=== PATIENT | female | born 1945 | race Caucasian/White ===

== ENCOUNTER 2016-10-11 08:33 | Outpatient (CLI) ==
--- NOTE | 2016-10-11 10:55 | MRI ---
EXAM: MRI left knee without contrast. HISTORY: Left knee pain. No known injury. Low back pain. No left knee surgery reported.. TECHNIQUE: Using a local extremity coil on a high field strength magnet multiplanar multisequence m agnet resonance imaging performed of the left knee without intravenous or intra-articular gadolinium contrast. FINDINGS: I do not have prior radiographs of the left knee available for comparison at the time of this dictation. Within the medial compartment medial meniscus is intact without discrete surfacing meniscal tear. M edial compartment cartilage congruent without focal underlying subchondral edema. Within the lateral compartment lateral meniscus is intact without discrete surfacing meniscal tear. The lateral compartment cartilage congruent without focal underlying subchondral edema. Within the patellofemoral compartment the patella seated with intact patellar attachment of the medi al and lateral patellar retinaculum. Patellar cartilage congruent without focal underlying subchond ral edema. Focal chondrosis with subchondral remodeling over the inferior medial trochlear groove. Trace left knee effusion. No osteochondral loose bodies. Intact PCL fibers of normal orientation. Expansion of proximal to mid substance anterior cruciate ligament fibers with increased signal inte nsity. Appearance suggests cruciate ligament ganglion with possible mucoid degeneration. Some of t his appearance may be secondary to chronic partial tear/sprain. No anterior translation of the tibi a with respect to the femur. The extensor mechanism is intact. The medial collateral ligament as w ell as lateral collateral ligament complex and posterolateral corner intact. Overall bone marrow si gnal intensity shows no acute fracture, stress fracture or bone erosions. Incidental note of an lupe roximate 5 cm craniocaudad area measuring approximate 27 x 10 mm of serpiginous bright T2 signal int ensity intramuscular along the distal left biceps femoris muscle. This has a feeding/draining vascu larity. IMPRESSION: No discrete surfacing meniscal tear. Mild chondrosis with subchondral remodeling over the inferior medial trochlear groove. Trace left e ffusion. Anterior cruciate ligament ganglion with possible mucoid degeneration. Some of this appearance may b e secondary to chronic partial tear/sprain. Intact PCL and collateral ligaments. 5 cm x 27 x 10 mm serpiginous soft tissue lesion intramuscular along the distal left biceps femoris muscle with feeding/draining vascularity. Question vascular malformation/hemangioma.
--- NOTE | 2016-10-11 13:14 | MRI ---
EXAM: MRI lumbar spine without IV contrast. DATE: 10/11/2016. HISTORY: Low back pain. TECHNIQUE: Sagittal and axial T1W and T2W sequences of the lumbar spine along with sagittal IR and coronal T2W sequences were obtained using 1.5 Lucie magnet. No IV contrast. COMPARISON: CT abdomen/pelvis [address] T-spine August 2014. FINDINGS: There are five [id number] lumbar vertebra. Minimal (3 degrees) rightward curvature lumbar spine is present. No acute lumbar fracture, subluxation, osseous malignancy, or pars interar ticularis defect is identified. A T2W/T1W bright, 9.4 mm focus in the is identified in the L3 body and similar 8.2 mm focus in the eft side of T11. T2W/T1W/IR bright, 7 x 2.5 x 9.5 mm focus in the T 12 spinous process may be an atypical hemangioma. Small anterior osteophytes are noted at several l umbar levels. Tiny, chronic Schmorl's nodes are identified at T10 and L1. There is mild disc space narrowing at L5-S1. Bone marrow signal is overall normal. No sacral fracture or stress reaction is apparent. SI joints are unremarkable. Conus medullaris terminates at T12-L1. No retroperitoneal lymphadenopathy, paraspinal mass, or aortic aneurysm is detected. A sclerotic pl aques are present within the aortic wall. Psoas muscles are normal. There is minor bilateral poste rior paraspinal muscle atrophy. Visible portions of the liver, spleen, adrenal glands, and kidneys reveal no distinct malignancy. A T2W bright, T1W dark, 1.4 mm focus in the anterior cortex midpole right kidney is likely benign cyst. No bowel obstruction or neoplasm is demonstrated. Small number sigmoid colon diverticuli are observed. Segmental analysis: T11-12: Normal. T12-L1: Minimal posterior disc bulge does not cause cord compression, central stenosis or foraminal stenosis. L1-2: Normal. L2-3: Small concentric disc bulge and minor facet disease cause slight bilateral inferior foraminal encroachment. No central canal stenosis. L3-4: Minor posterior disc bulge causes slight narrowing at the opening to the left foramen. No ce ntral canal stenosis. L4-5: Small concentric disc bulge, minimal right facet arthropathy, and mild left facet arthropathy cause mild central canal stenosis and minor bilateral foraminal narrowing. L5-S1: Minimal posterior to right foraminal disc bulge and mild right facet arthropathy cause trian gulation of the canal and minor right foraminal narrowing. IMPRESSIONS: 1. Lumbar spine minimal rightward curvature, minor spondylosis, mild facet arthropathy, and minor D DD. 2. Multilevel foraminal narrowing (minimal/mild). No definitive nerve compression. 3. Triangulation of canal at L5-S1. No other central canal stenosis. 4. Probable benign hemangiomas at T11, T12, and L3. 5. Right kidney tiny (1.5 mm) cortical cyst. 6. Descending colon mild diverticulosis. 7. Abdominal aortic atherosclerosis.
== END 2016-10-11 08:34 | disposition home or self-care (01) ==
LOC: RAD 08:33
PROVIDERS: ATTEND Internal Medicine
DX: M54.5 Low back pain (principal); M25.562 Pain in left knee

== ENCOUNTER 2016-11-24 15:41 | Outpatient (CLI) ==
--- NOTE | 2016-11-24 15:58 | DI ---
EXAM: Four views of the paranasal sinuses. History: Rhinitis. Findings: Evaluation is difficult due to overlapping osseous and soft tissue structures. No fractu res are seen. No distinct air-fluid levels are seen within the sinuses. Impression: No acute findings.
== END 2016-11-24 15:42 | disposition home or self-care (01) ==
LOC: RAD 15:41
PROVIDERS: ATTEND Otolaryngology
DX: J31.0 Chronic rhinitis (principal); J32.9 Chronic sinusitis, unspecified

== ENCOUNTER → 2016-12-01 | Outpatient (POV) | payer OTHER | LOC: OUTPT 00:01 | PROVIDERS: ATTEND Otolaryngology | DX: H90.5 Unspecified sensorineural hearing loss (principal) | CPT/HCPCS: 92557; 92567 ==

== ENCOUNTER 2017-02-21 08:59 | Outpatient (CLI) ==
[2017-02-21] MEDS ORDERED: PROLIA SUBCUT STA (09:13)
[2017-02-21 09:18] VITALS: BP 141/69; TEMP 98.3
== END 2017-02-21 09:00 | disposition home or self-care (01) ==
LOC: OPMED 08:59
PROVIDERS: ATTEND Internal Medicine
DX: M81.0 Age-related osteoporosis without current pathological fracture (principal)
CPT/HCPCS: 96372

== ENCOUNTER 2017-09-19 07:05 | Outpatient (CLI) ==
[2017-09-19 07:22] VITALS: BP 142/73; TEMP 97.8
[2017-09-19] MEDS: PROLIA SUBCUT STA (07:25)
== END 2017-09-19 07:06 | disposition home or self-care (01) ==
LOC: OPMED 07:05
PROVIDERS: ATTEND Internal Medicine
DX: M81.0 Age-related osteoporosis without current pathological fracture (principal)
CPT/HCPCS: 96372

== ENCOUNTER 2017-10-18 09:25 | Outpatient (CLI) | payer OTHER ==
--- NOTE | 2017-10-18 10:20 | US ---
EXAM: Carotid ultrasound HISTORY: Right bruit COMPARISON: None TECHNIQUE: Carotid ultrasound was performed using cali scale, color, and Doppler imaging was perform ed. FINDINGS: Right carotid: There is atherosclerotic plaque in the common carotid and bulb/proximal internal michel tid artery. Peak systolic velocity measurement in the right internal carotid artery is 0.6 meters pe r second. End-diastolic velocity measurement in the right internal carotid artery is 0.2 meters per second. Right internal to common carotid artery peak systolic velocity ratio is 0.7. Flow in the ri ght vertebral artery is antegrade. Left carotid: There is atherosclerotic plaque in the common carotid and bulb/proximal internal carot id artery. Peak systolic velocity measurement in the left internal carotid artery is 0.8 meters per second. End-diastolic velocity measurement in the left internal carotid artery is 0.2 meters per sec ond. Left internal to common carotid artery peak systolic velocity ratio measures 1.0. Flow in the left vertebral artery is antegrade. IMPRESSION: 1. Right internal carotid: Mild (less than 50%) stenosis 2. Left internal carotid: Mild (less than 50%) stenosis
== END 2017-10-18 09:26 | disposition home or self-care (01) ==
LOC: RAD 09:25
PROVIDERS: ATTEND Internal Medicine
DX: R09.89 Other specified symptoms and signs involving the circulatory and respiratory systems (principal)

== ENCOUNTER 2017-12-02 10:12 | Outpatient (CLI) | payer OTHER ==
--- NOTE | 2017-12-02 15:36 | MRI ---
EXAM: Lumbar spine MRI without contrast. HISTORY: Left sciatica. COMPARISON: Lumbar spine MRI 10/11/2016. TECHNIQUE: Multiplanar, multisequence MR images were acquired of the lumbar spine without contrast. FINDINGS: Conus medullaris ends at T12-L1 and has normal signal intensity. Five non-rib bearing lum bar vertebra are present. There is minor thoracolumbar levoscoliosis centered at T12-L1 and minor mi d lumbar levoscoliosis. There is no change in the 2 mm degenerative anterolisthesis of L4 on L5. Th e lumbar vertebra are generally normal in height and intrinsic bone marrow signal. A probable atypic al benign intraosseous hemangioma is present in the T12 posterior spinous process and there are small benign intraosseous hemangiomas at T11 and L3. Minor lumbar ventral spondylosis is present. There is desiccation of the intervertebral discs at L2-3, L4-5 and L5-S1 and there is mild disc space narro wing at L3-4. The partially visualized liver, spleen and kidneys are unremarkable. Several distal descending/sigmo id colonic diverticula are present without diverticulitis. T12-L1: There is a small posterior disc bulge and chronic Schmorl's node along the L1 superior endpl ate. There is no central canal stenosis or foraminal stenosis. L1-2: The intervertebral disc is normal. L2-3: There is a mild disc bulge that narrows the inferior neural foramina bilaterally and there is a small central disc protrusion. There is no central canal stenosis. L3-4: There is a mild disc bulge that minimally narrows the inferior left neural foramen and mild bi lateral facet and ligamentum flavum hypertrophy. There is no central canal stenosis. L4-5: There is anterolisthesis of L4 on L5 and there is a mild disc bulge that is greatest left post eriorly. Moderate left and mild right hypertrophic facet arthropathy is present which causes mild le ft neural foraminal stenosis and minor right foraminal stenosis. There is no central canal stenosis. L5-S1: The intervertebral disc is normal. There is a minor disc bulge that is greatest left posteri natasha and right laterally which narrows the inferior right neural foramen. Small bilateral lateral/fa r lateral endplate osteophytes are present which may encroach on the L5 nerves exiting the neural for judy. There is mild left and minor right facet arthropathy and minor right foraminal stenosis. IMPRESSION: 1. Stable minor lumbar degenerative spondylosis and mild to moderate lumbar facet arthropathy. 2. No change 2 mm degenerative anterolisthesis L4 on L5 due to moderate left and mild right hypertro phic facet arthropathy. 3. Small central disc protrusion L2-3 without central canal stenosis.
== END 2017-12-02 10:13 | disposition home or self-care (01) ==
LOC: RAD 10:12
PROVIDERS: ATTEND Internal Medicine
DX: M54.42 Lumbago with sciatica, left side (principal)

== ENCOUNTER 2018-02-13 11:38 | Outpatient (CLI) | END 2018-02-13 11:39 | disposition home or self-care (01) | LOC: LAB 11:38 | PROVIDERS: ATTEND Physician Assistant Medical | DX: R03.0 Elevated blood-pressure reading, without diagnosis of hypertension (principal); I78.8 Other diseases of capillaries; L72.8 Other follicular cysts of the skin and subcutaneous tissue; M25.50 Pain in unspecified joint; L40.0 Psoriasis vulgaris; L40.59 Other psoriatic arthropathy; Z79.899 Other long term (current) drug therapy | CPT/HCPCS: 36415; 80053; 85025 ==

== ENCOUNTER 2018-03-02 08:29 | Outpatient (CLI) ==
[2018-03-02] MEDS ORDERED: PROLIA SUBCUT STA (08:48)
[2018-03-02 08:51] VITALS: BP 148/56; TEMP 98
== END 2018-03-02 08:30 | disposition home or self-care (01) ==
LOC: OPMED 08:29
PROVIDERS: ATTEND Internal Medicine
DX: M81.0 Age-related osteoporosis without current pathological fracture (principal)
CPT/HCPCS: 96372

== ENCOUNTER 2018-03-21 15:16 | Outpatient (CLI) ==
--- NOTE | 2018-03-21 16:04 | DI ---
EXAM: Three views of the left foot. History: Left foot pain. Comparison: Left foot radiograph 06/19/2014 Findings: No acute fracture or dislocation. Mild calcaneal enthesiopathy. Moderate to severe narro wing of the first MTP joint with marginal sclerosis and osteophyte formation. Diffuse subcutaneous e juan c. Impression: 1. No acute osseous abnormality. 2. 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 3. Diffuse subcutaneous edema. 4. Calcaneal enthesiopathy
--- NOTE | 2018-03-21 16:58 | MRI ---
EXAM: MRI of the right knee without contrast COMPARISON: None available. HISTORY: Posterior knee pain for 2-3 weeks. No known injury. TECHNIQUE: Multiplanar noncontrast MR images of the right knee were acquired using a 1.2 Lucie magne t. FINDINGS: There is intrasubstance degeneration of the medial meniscus without a surfacing tear. The re is intrasubstance degeneration of the lateral meniscus. Striated appearance of the anterior horn/ anterior root attachment of the lateral meniscus favoring anatomic variation or less likely a vertica l tear. Inversion recovery hyperintense signal throughout the adjacent anterior cruciate ligament with thinni ng of the ligament fibers suggesting extensive mucoid degeneration versus sequela of a partial/inters titial tear with residual intact fibers identified. Small hypointense structure along the lateral asp ect of the intercondylar notch as seen on the coronal T2-weighted sequence suggesting some fibers of the anterior cruciate ligament. Bucket-handle fragment arising from the lateral meniscus is consider ed unlikely as the meniscus is otherwise unremarkable in appearance. The posterior cruciate ligament is intact. The medial collateral ligament, lateral collateral ligament complex and posterolateral c orner ligaments are intact. Mild quadriceps and minimal patellar tendinosis without abnormal subluxa tion ofthe patella. Subcutaneous edema anteriorly. Susceptibility artifact within the anteromedial soft tissues which may be related to metallic foreign body at that site. Subcutaneous edema anteriorl y appear Mild to moderate thinning and superficial irregularity of the cartilage of the patella. Moderate thi nning of the cartilage in the medial compartment. No evidence of an acute fracture or osteomyelitis. Moderate joint effusion. Slit-like popliteal cyst. No definite osteochondral body. IMPRESSION: 1. Hyperintense signal and thinning of the anterior cruciate ligament related to extensive mucoid de generation versus sequela of a partial/interstitial tear with intact ligament fibers identified. 2. Hyperintense signal along the anterior root attachment of the lateral meniscus which may represen t extension of signal changes within the anterior cruciate ligament along the shared tibial attachmen t with the anterior cruciate ligament versus anatomic variation with tear at that site considered les s likely. Small hypointense structure along the lateral aspect of the intercondylar notch is favored represent a portion of the anterior cruciate ligament rather than a bucket-handle fragment. 3. Medial and patellofemoral compartment osteoarthrosis. 4. Moderate joint effusion, nonspecific. Slit-like popliteal cyst. 5. Mild patellar/quadriceps tendinosis. 6. Subcutaneous edema anteriorly. Question small metallic foreign body anteromedially.
== END 2018-03-21 15:17 | disposition home or self-care (01) ==
LOC: RAD 15:16
PROVIDERS: ATTEND Internal Medicine
DX: M25.561 Pain in right knee (principal); M79.672 Pain in left foot

== ENCOUNTER 2018-09-04 15:49 | Outpatient (CLI) | payer OTHER ==
[2018-09-04 16:00] VITALS: BP 124/64; TEMP 97.6
[2018-09-04] MEDS: PROLIA SUBCUT STA (16:02)
== END 2018-09-04 15:50 | disposition home or self-care (01) ==
LOC: OPMED 15:49
PROVIDERS: ATTEND Internal Medicine
DX: M81.0 Age-related osteoporosis without current pathological fracture (principal)
CPT/HCPCS: 96372

== ENCOUNTER 2018-11-13 08:45 | Outpatient (CLI) | payer OTHER ==
--- NOTE | 2018-11-13 11:31 | MRI ---
EXAM: MRI of the left knee without contrast COMPARISON: MRI of the left knee 10/11/2016. HISTORY: Left knee pain. No history of left knee surgery specifically provided. TECHNIQUE: Multiplanar noncontrast MR images of the left knee were acquired using a 1.2 Lucie magnet . The submitted images are moderately limited by patient motion artifact and decreased signal to darinel se ratio on several sequences. The sagittal STIR sequence was repeated. FINDINGS: The medial lateral menisci are intact without identification of a surfacing meniscal tear. There is extensive inversion recovery hyperintense signal throughout the substance of the anterior cr uciate ligament with expansion of the ligament proximally favoring extensive mucoid degeneration vers us sequela of a partial/interstitial tear as previously described. There appear to be some thin inta ct residual fibers at that level. This has not significantly changed in appearance as compared to th e previous study. The posterior cruciate ligament, medial collateral ligament and lateral collateral ligament are intact. Mild quadriceps tendinosis and enthesopathy with minimal patellar tendinosis. 0.7 cm lateral subluxation of the patella. Subcutaneous edema anteriorly and medially. There is thinning and irregularity of the cartilage along the junction of the lateral facet and media n ridge which is overall increased in extent as compared to the previous study with thinning and irre gularity of the cartilage along the opposing articular surface of the trochlear groove inferiorly. M ild thinning and irregularity of the cartilage in the medial compartment. No evidence of an acute fr acture or osteomyelitis. There is a small joint effusion with a slit-like popliteal cyst. Soft tissue mass with a tubular/serpentine regions of T2 hyperintense signal and central regions of h ypointense signal extending overlying of 5.6 cm and measuring 2.7 x 1.0 cm in transverse dimension al jamie the course of the distal biceps femoris muscle extending through the level of the joint line with intramuscular component. This was also described on the previous study and may represent a vascular malformations/hemangioma. This is stable to mildly increased in extent as compared to the previous study with increased prominence of adjacent intramuscular and subcutaneous veins which may represent varices/draining veins. IMPRESSION: 1. 5.6 x 2.7 x 1.0 cm serpiginous lesion along the course of the distal biceps femoris muscle with i ntramuscular component which may represent a vascular malformation/hemangioma as noted on the previou s study. This is stable to mildly increased in extent as compared to previous study with increased p rominence of adjacent intramuscular/subcutaneous veins which may represent varices/draining veins. T his could be further assessed with lower extremity Doppler versus CT angiography (with both arterial and venous phase imaging). 2. Intact menisci. 3. Sequela of mucoid degeneration versus previous partial/interstitial tear of the anterior cruciate ligament, unchanged. 4. Mild patellar/quadriceps tendinosis with lateral subluxation of the patella. 5. Medial and patellofemoral compartment osteoarthrosis which has increased in extent. 6. Small joint effusion with a slit-like popliteal cyst.
== END 2018-11-13 08:46 | disposition home or self-care (01) ==
LOC: RAD 08:45
PROVIDERS: ATTEND Internal Medicine
DX: M25.562 Pain in left knee (principal)

== ENCOUNTER 2019-03-29 15:00 | Outpatient (RCR) | payer OTHER ==
--- NOTE | 2019-03-19 09:47 | RS.OPPTEV2 ---
Date of Note: 03/15/19 Visit #: 1 Number of visits approved by Insurance: NA Date of Evaluation: 03/15/19 Payer Source: MEDICARE Surgery Performed?: No Treatment Diagnosis: Low back pain History of Condition/Mechanism of Injury:: Patient reports onset of left low back/sciatic type pain began soon after having left knee surgery the end of November this year. Prior Level of Function.....Patient was independent with: ADL's, Self Care, Work /Vocation (pt works as dietary aide in [employer] Caregiving, Ambulation/ Mobility, Community Integration/Access Functional Limitations: Sleep, ADL's, Sitting, Standing, Bending, Squatting, Ambulation, Community Access/Integration Current Subjective/complaints:: Mrs. Mcgowan reports she has been using ice packs at the left hip and left low back region to manage the pain. States she gets pain at times all the way down to the left ankle. No symptoms into the foot /toes. She has tingling at times along the lateral side of the left ankle. States sitting is the worst. She tolerates walking well. States standing for a prolonged period of time bothers her knees and her back. States her pain level varies day to day, depending on her activity. 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 She takes medication before going to work. States she has not had an injection. States she has difficulty sleeping. States she has been waking up around 4am due to pain. She gets up and takes pain pills and gets ice pack on her left hip and low back. Treatment Side (optional): Left *Precautions: n/a Medical History Medical History: Arthritis Surgical History Comments:: R meniscus repair November 2018 Smoking Status: Former smoker Diagnostic Testing/Imaging:: MRI of lumbar spine on 12/02/17: Impression: Stable minor lumbar degenerative spondylosis and mild to moderate lumbar facet arthropathy. No change 2mm degenerative anterolisthesis L4 on L5 due to moderate left and mild right hypertrophic facet arthropathy. small central disc protrusion L2-3 without central canal stenosis. Full report is in patient's EMR. Hx Home Medications: simvastatin, omeprazole, triamt/hctz, tramadol, prolia, vitamin D3, Vitamin E, krill oil Patient's Goals: Her goal is to get relief of back pain. Pain Assessment - Pain Description Pain Location: left low back down to the left ankle Current Pain Intensity: 5/10 Worst Pain Intensity: 9/10 Functional Outcome Measure Oswestry LBP: 54 - G Codes & Severity Modifier G Codes & Modifier: NA Source of G Code score: NA Observation - Observation Posture: Forward Head, Rounded Shoulders, Scapula Asymmetry (right elevated), Decreased Lumbar Lordosis Gait - Gait Pattern Gait Comments: Patient ambulates with slight flexed forward posture, with slow, cautious gait. Ambulates independently, without an assistive device. - ROM Comments: Lumbar flexion hands to shins, with most movement at the hips. Lumbar extension is WFL's. Sidebending is WFL's bilaterally with no significant increased pain. - Strength Trunk Lateral Flexion: 4 Good Trunk Rotation: 4 Good Comments: Bilateral LE generally 4 to 4+/5. - Special Tests SADE Test: Negative Right, Positive Left SLR Test: Negative Left, Negative Right Seated Dural Stretch Test: Negative Left, Negative Right SI Joint Compression: Positive Comments: [place] distraction of left LE gives some relief of pain. Palpation Comments:: Patient reports "soreness" with palpation along the left Greater trochanter and down the ITB. Reports tenderness with palpation over superior and mid Glut Antonio bilaterally. Sensation - Sensation Right Lower Extremity: Intact/Normal Left Lower Extremity: Intact/Normal Additional Comments: Additional Comments: Left SLR to 45-50 degrees, Right SLR 40-45 degrees. - Treatment Modality: Ultrasound Parameters/Method Applied: X 12 mins to bilateral SI joint and superior gluteal region @ 1.5 w/cm2 continuous Patient Position: Left Sidelying Interventions - Exercise/Activities/Manual Therapy Exercises/Activities: No HEP given today. Discussed avoiding any position for too long, which she is already doing. Advised her to continue using ice if it seems to help. Manual Therapy: n/a HOME EXERCISE PROGRAM: none at this time - Charges Timed Code Treatment Minutes: 12 mins Total Treatment Time: 55 mins Procedures billed for this date of service:: EVAL Med, EVALUATION COMPLEXITY LEVEL EVALUATION COMPLEXITY LEVEL: HISTORY: Medium (recent left knee sx), EXAM OF BODY SYSTEMS: Medium, CLINICAL PRESENTATION: Medium (difficult to determine source of pain), CLINICAL DECISION MAKING: Medium Assessment Assessment: Patient presents today to therapy with a diagnosis of low back pain. This left sided low back and LE pain started soon after her right knee surgery. She reports significant radiating pain into the LLE, especially with sitting. Pain level reportedly varies depending on her activity. She exhibits positive SADE's on the left. She has tenderness over the gluteal muscles, including over Piriformis. She demonstrates potential to benefit from modalities , stretching, and progressive stability exercises to reduce her pain. Patient Education: Education of diagnosis, Body/Joint mechanics, Activity Modification, Education of Plan of Care Rehab Potential: Good Short Term Goals Goal #1: Pt independent with initial HEP Goal to be met by: 03/30/19 Goal #2: Left LE pain localized to the left hip. Goal to be met by: 03/30/19 Goal #3: Tenderness in superior/mid glut max decreased to minimal. Goal to be met by: 03/30/19 Goal #4: Pt to demo. good understanding of back safety and body mechanics. Goal to be met by: 03/30/19 Fpc Goals Goal #1: Pt knows HEP and to continue ex's to maintain functional level at D/C. Goal to be met by: 05/03/19 Goal #2: Oswestry LBP scale improved to 24. Goal to be met by: 05/03/19 Goal #3: Pt to tolerate sitting as needed without low back or LLE pain. Goal to be met by: 05/03/19 Goal #4: Pt to sleep through night without interruption from LBP or LLE pain. Goal to be met by: 05/03/19 Plan - Treatment to be Provided Procedures: Therapeutic Exercises, Therapeutic Activity, Gait Training, Manual Therapy, Massage, Patient Education Modalities: Electrical Stimulation, Ultrasound/Phonophoresis, Cryotherapy, Hot Packs - Treatment Plan Frequency: 2 X week Duration: 6 weeks Dates of Plastic Maker Goals: 05/03/19 Expiration date of current Insurance Approval:: NA - Treatment Code (1) Low back pain Code(s): M54.5 - LOW BACK PAIN Qualifiers: Chronicity: acute Back pain laterality: left Sciatica presence: unspecified whether sciatica present Qualified Code(s): M54.5 - Low back pain
--- NOTE | 2019-03-21 16:39 | RS.OPPTDN ---
Subjective Date of Note: 03/21/19 Visit #: 2 Number of visits approved by Insurance: REassess at 10 Date of Evaluation: 03/15/19 Payer Source: MEDICARE Treatment Diagnosis: Low back pain Current Subjective/complaints:: Patient says she has been using ice at home and on breaks at school which is helping. She states she has tenderness to the L SI joint and the L low back that also runs to the calf. She says her pain has been better though since she received a steroid injection from Dr. Nolan yesterday while also receiving oral dose as well. Reports she is hopeful PT can help additionally. *Precautions: n/a - Treatment Modality: Ultrasound Parameters/Method Applied: continuous@ 1.5 w/cm2 x 12 mins to the L lumbar paraspinals and SI joint Patient Position: Right Sidelying - Heat/Cryotherapy Treatment: Hot Pack (over the L low back and hip x 20 mins in sidelying) Interventions - Exercise/Activities/Manual Therapy Exercises/Activities: Patient receives passive stretching including HS, piriformis, figure 4 and lower trunk rotation for the L. She begins pillow squeezes x 10 reps in hooklying. Encouraged continued use of ice for pain control and then we will ease into HEP as pain decreases. Total minutes of Exercise: 12 Manual Therapy: n/a HOME EXERCISE PROGRAM: none at this time - Charges Timed Code Treatment Minutes: 24 Total Treatment Time: 39 Procedures billed for this date of service:: hp, u/s, ex Assessment: Patient seems to be responding to recent injection, and modalities as well as using ice at home. She should benefit from continued modalities and therex. Patient Education: Education of diagnosis, Home Exercise Program, Education of Plan of Care Short Term Goals Goal #1: Pt independent with initial HEP Goal to be met by: 03/30/19 Goal #2: Left LE pain localized to the left hip. Goal to be met by: 03/30/19 Goal #3: Tenderness in superior/mid glut max decreased to minimal. Goal to be met by: 03/30/19 Goal #4: Pt to demo. good understanding of back safety and body mechanics. Goal to be met by: 03/30/19 Rack Carrier Goals Goal #1: Pt knows HEP and to continue ex's to maintain functional level at D/C. Goal to be met by: 05/03/19 Goal #2: Oswestry LBP scale improved to 24. Goal to be met by: 05/03/19 Goal #3: Pt to tolerate sitting as needed without low back or LLE pain. Goal to be met by: 05/03/19 Goal #4: Pt to sleep through night without interruption from LBP or LLE pain. Goal to be met by: 05/03/19 Plan Dates of Rack Carrier Goals: 05/03/19 Expiration date of current Insurance Approval:: 05/03/19 PLAN: Continue 2-3 x per week to ease L LBP and L SI joinrt pain
--- NOTE | 2019-03-23 16:48 | RS.OPPTDN ---
Subjective Date of Note: 03/23/19 Visit #: 3 Number of visits approved by Insurance: Reassess at 10 Date of Evaluation: 03/15/19 Payer Source: MEDICARE Treatment Diagnosis: Low back pain Current Subjective/complaints:: Patient says her pain is improving with therapy. She says it does get irritated with constant walking and standing at school. Reports she is not getting much sleep at night due to taking oral steroids and it keeping her active/awake. *Precautions: n/a - Treatment Modality: Ultrasound Parameters/Method Applied: continuous @ 1.5 w/cm2 x 12 mins to the L lumbar paraspinals and SI joint/superior glut Patient Position: Right Sidelying - Heat/Cryotherapy Treatment: Hot Pack (over the low back and L hip in sidelying x 15 mins) Interventions - Exercise/Activities/Manual Therapy Exercises/Activities: Patient receives passive stretching including HS, piriformis, figure 4 and lower trunk rotation for the L. She continues with pillow squeezes x 10 reps in hooklying. Isometric hip flexion and abd x 8. Encouraged continued use of ice for pain control and then we will ease into HEP as pain decreases. Total minutes of Exercise: 16 Manual Therapy: n/a HOME EXERCISE PROGRAM: none at this time - Charges Timed Code Treatment Minutes: 28 Total Treatment Time: 53 Procedures billed for this date of service:: hp, u/s, ex Assessment: Patient responding to treatment experiencing reduced LSI and L LBP, but does have flared pain while at work due to constant and prolonged standing and ambulation at work. She is sheri stretching well with relief also and progressing with pelvic stability. Patient Education: Body/Joint mechanics, Home Exercise Program Patient demonstrates compliance with HEP?: Yes Short Term Goals Goal #1: Pt independent with initial HEP Goal to be met by: 03/30/19 Progress towards Goal:: Progressing Goal #2: Left LE pain localized to the left hip. Goal to be met by: 03/30/19 Progress towards Goal:: Progressing Goal #3: Tenderness in superior/mid glut max decreased to minimal. Goal to be met by: 03/30/19 Goal #4: Pt to demo. good understanding of back safety and body mechanics. Goal to be met by: 03/30/19 Fdc Goals Goal #1: Pt knows HEP and to continue ex's to maintain functional level at D/C. Goal to be met by: 05/03/19 Goal #2: Oswestry LBP scale improved to 24. Goal to be met by: 05/03/19 Goal #3: Pt to tolerate sitting as needed without low back or LLE pain. Goal to be met by: 05/03/19 Goal #4: Pt to sleep through night without interruption from LBP or LLE pain. Goal to be met by: 05/03/19 Plan Dates of Faro Dealer Goals: 05/03/19 Expiration date of current Insurance Approval:: 05/03/19 PLAN: Patient to continue BIW for modalities and therex
--- NOTE | 2019-03-27 16:42 | RS.OPPTDN ---
Subjective Date of Note: 03/27/19 Visit #: 4 Number of visits approved by Insurance: Reassess at 10 Date of Evaluation: 03/15/19 Payer Source: MEDICARE Treatment Diagnosis: Low back pain Current Subjective/complaints:: Patient c/o being more tired today than usual. Says she is not getting sleep at night due to steroid pack, but it is helping her pain a great deal so she wants to continue taking them. Reports "tender spots" throughout the L hip. She also c/o R knee pain and stiffness related to wet and cooler weather. *Precautions: n/a - Treatment Modality: Ultrasound Parameters/Method Applied: continuous @ 1.5 w/cm2 x 12 mins to the L lumbar paraspinals and L SI joint Patient Position: Right Sidelying - Heat/Cryotherapy Treatment: Hot Pack (over the low back and L hip x 20 mins sidelying.) Interventions - Exercise/Activities/Manual Therapy Exercises/Activities: Patient receives passive stretching including HS, piriformis, figure 4 and lower trunk rotation for the L. She continues with pillow squeezes x 10 reps in hooklying. Isometric hip flexion and abd x 8. Bridging x 8, SLR x 5. Stopped early on bridges due to mm cramping to the R hamstring. Encouraged continued use of ice for pain control and then we will ease into HEP as pain decreases. Total minutes of Exercise: 16 Manual Therapy: n/a HOME EXERCISE PROGRAM: none at this time - Charges Timed Code Treatment Minutes: 28 Total Treatment Time: 50 Procedures billed for this date of service:: hp, u/s, ex Assessment: Patient presents with increased general fatigue and R knee joint ache/stiffness weather related. She appears to sheri progression of treatment well while combined with her steroid for pain control. She is able to sheri increased L HS and piriformis stretching compared to last week. She should continue to improve with modalties and stretching/pelvic strengthening. Patient Education: Education of diagnosis, Home Exercise Program, Education of Plan of Care Patient demonstrates compliance with HEP?: Yes Short Term Goals Goal #1: Pt independent with initial HEP Goal to be met by: 03/30/19 Progress towards Goal:: Progressing Goal #2: Left LE pain localized to the left hip. Goal to be met by: 03/30/19 Progress towards Goal:: Progressing Goal #3: Tenderness in superior/mid glut max decreased to minimal. Goal to be met by: 03/30/19 Progress towards Goal:: Progressing Goal #4: Pt to demo. good understanding of back safety and body mechanics. Goal to be met by: 03/30/19 Progress towards Goal:: Progressing Drag Out Man Goals Goal #1: Pt knows HEP and to continue ex's to maintain functional level at D/C. Goal to be met by: 05/03/19 Goal #2: Oswestry LBP scale improved to 24. Goal to be met by: 05/03/19 Goal #3: Pt to tolerate sitting as needed without low back or LLE pain. Goal to be met by: 05/03/19 Goal #4: Pt to sleep through night without interruption from LBP or LLE pain. Goal to be met by: 05/03/19 Plan Dates of Drag Out Man Goals: 05/03/19 Expiration date of current Insurance Approval:: 05/03/19 PLAN: Continue BIW
== END 2019-03-31 23:59 ==
DX: M54.5 Low back pain (principal)

== ENCOUNTER 2019-06-07 12:54 | Inpatient (IN) ==
[2019-06-07] MEDS ORDERED: NITROSTAT SL PRN (13:15)
[2019-06-07] MEDS ORDERED: TYLENOL PO PRN (13:15)
[2019-06-07] MEDS ORDERED: ATROPINE SULFATE PFS IVP PRN (13:15)
[2019-06-07] MEDS ORDERED: VISTARIL INJ IM PRN (13:15)
[2019-06-07] MEDS ORDERED: DECADRON 4 MG/ML SDV IM STA (13:19)
[2019-06-07 13:38] VITALS: BMI 32.8
[2019-06-07] MEDS: SODIUM CHLORIDE 1,000 ML IV SCH (14:01)
[2019-06-07] MEDS: ROCEPHIN 1 GM/50 ML D5W 1 GM/50 ML BAG IV SCH (14:02)
[2019-06-07] MEDS ORDERED: NORCO 5-325 PO PRN (14:48)
[2019-06-07] MEDS ORDERED: MOMETASONE NAS PRN (14:48)
[2019-06-07] MEDS ORDERED: FLONASE NAS PRN ×2 (14:48→15:27)
[2019-06-07] MEDS ORDERED: ULTRAM PO PRN ×2 (14:48→15:26)
[2019-06-07] MEDS ORDERED: XANAX PO PRN (14:48)
--- NOTE | 2019-06-07 14:54 | DI ---
EXAM: Two views of the chest. History: Cough. Findings: Heart size is normal. Questionable micronodular infiltrate within the left lower lobe. N o pleural fluid and no pneumothorax. No acute osseous abnormalities. Atherosclerotic vascular calci fications. Impression: Questionable micronodular infiltrate within the left lower lobe and could represent kaylie y pneumonia.
[2019-06-07] MEDS: NEURONTIN PO SCH (20:44)
[2019-06-08] MEDS: SODIUM CHLORIDE 1,000 ML IV SCH ×2 (03:42→18:01)
[2019-06-08] MEDS: PROTONIX PO SCH (05:35)
[2019-06-08] MEDS ORDERED: DECADRON 4 MG/ML SDV IM STA (07:52)
[2019-06-08] MEDS: ROCEPHIN 1 GM/50 ML D5W 1 GM/50 ML BAG IV SCH (08:48)
[2019-06-08] MEDS ORDERED: TRIAMTERENE HYDROCHLOROTHIAZID PO SCH (09:00)
[2019-06-08] MEDS ORDERED: VITAMIN D3 PO SCH (09:00)
[2019-06-08] MEDS ORDERED: [UNRECOGNIZED DRUG - OTHER] PO SCH (09:00)
[2019-06-08] MEDS ORDERED: CALCIUM CARBONATE VITAMIN D3 PO SCH (09:00)
[2019-06-08] MEDS: CALCIUM 500 + VIT D 200 MG TABLET PO SCH (09:41)
[2019-06-08] MEDS: DYAZIDE PO SCH (09:42)
[2019-06-08] MEDS: NEURONTIN PO SCH ×2 (09:42→20:09)
[2019-06-08] MEDS: OMEGA-3 FISH OIL PO SCH (09:42)
[2019-06-08] MEDS: ZOCOR PO SCH (09:43)
[2019-06-08] MEDS: ASPIRIN EC PO SCH (09:52)
--- NOTE | 2019-06-08 10:01 | PCM.PROG ---
Attending Provider: ATTENDING PROVIDER: Dr. FRANNIE DONALD This patient is seen with Laura Yung, Nurse Practitioner. DATE OF SERVICE: 06/08/19 SUBJECTIVE: This 73 year old /WHITE F was hospitalized 06/07/19. The patient is sitting in bed resting comfortably. No fever through the night. Chest x-ray questionable for pneumonia. She is feeling better this morning, not as lethargic. REVIEW OF SYSTEMS: CONSTITUTIONAL: Positive for fatigue and weakness. No night sweats. No malaise, lethargy. No fever or chills. HEENT: Eyes: No visual changes. No eye pain. No eye discharge. ENT: No runny nose. No epistaxis. No sinus pain. No odynophagia. No congestion. RESPIRATORY: No cough, no congestion. No hemoptysis. No shortness of breath. CARDIOVASCULAR: No angina symptoms. No CHF symptoms. No atypical chest pain for CAD. No palpitations. No orthopnea.. GASTROINTESTINAL: No abdominal pain. No nausea or vomiting. No diarrhea or constipation. No hematemesis. No hematochezia. GENITOURINARY: No urgency. No frequency. No dysuria. No hematuria. No obstructive symptoms. No discharge. No pain. No significant abnormal bleeding. MUSCULOSKELETAL: No musculoskeletal pain; no joint swelling. NEUROLOGICAL: Awake, alert, oriented to time, place and person. No headache. No neck pain. No syncope. No seizures. No dizziness. PSYCHIATRIC: Not anxious. No depression. No suicidal thoughts. No homicidal thoughts. SKIN: No rash. No lesions. No wounds. ENDOCRINE: No unexplained weight loss. No weight gain. HEMATOLOGIC/LYMPHATIC: No anemia. No purpura. No petechiae. No prolonged or excessive bleeding. No palpable lymph nodes. PHYSICAL EXAMINATION: GENERAL: The patient is awake, alert and oriented, lying/sitting in bed in no distress. VITAL SIGNS: Temperature 97.7 F, Pulse 86, Respiratory Rate 16, BP 127/65, Pulse Ox 98% HEENT: Head normocephalic, atraumatic. Eyes: Extraocular muscles are intact. Pupils are equal, round and reactive to light and accommodation. Ears: No lesions. Nose appeared normal. Throat: No exudate or erythema. NECK: Supple. No JVD, no carotid bruit. No lymphadenopathy or thyromegaly. LUNGS: Diminished breath sounds. Clear to auscultation. Percussion note normal. Chest symmetrical. HEART: S1, S2, no S3. No murmurs. No cyanosis or clubbing. No ascites. Pulses: Dorsalis pedis and posterior tibial pulses +1 to +2 both sides. ABDOMEN: Soft. Non-tender. Bowel sounds active. No CVA tenderness. No mass felt. EXTREMITIES: No edema. Full range of motion of all extremities, equal. NEUROLOGIC: No focal deficit. Cranial nerves II through XII are grossly intact. No headache, no double vision or headache. SKIN: Not dry. Intact. Turgor-normal. LYMPHATIC: No palpable lymph nodes/no lymphedema. MUSCULOSKELETAL: Normal joints with no swelling. Muscle tone is normal. LAB REVIEW: 06/08/19 04:18 06/08/19 04:18 06/08/19 04:18: Sodium 139.3, Potassium 3.63, Chloride 105.2, Carbon Dioxide 2 7.4, Anion Gap 10.33, BUN 15.0, Creatinine 1.03, Estimated GFR (MDRD) 53.00, BUN/Creatinine Ratio 14.56, Glucose 135.0 H, Calcium 9.25, Total Bilirubin 0.46, AST 23.9, ALT 12.3, Alkaline Phosphatase 40.7 L, Total Protein 7.03, Albumin 4.05, Globulin 2.98, Albumin/Globulin Ratio 1.35 06/08/19 04:18: WBC 7.76, RBC 3.77 L, Hgb 10.8 L, Hct 33.1 L, MCV 87.8, MCH 28.6, MCHC 32.6, RDW Coeff of Aminah 12.8, Plt Count 234, Immature Gran % (Auto) 0.4, Neut % (Auto) 81.9, Lymph % (Auto) 12.5, [place] % (Auto) 5.0, Eos % (Auto) 0.1, Baso % (Auto) 0.1, Immature Gran # (Auto) 0.0, Neut # (Auto) 6.4, Lymph # (Auto) 1.0, [place] # (Auto) 0.4, Eos # (Auto) 0.0, Baso # (Auto) 0.0 06/07/19 21:41: Total Creatine Kinase 46.3, Troponin I < 0.012 06/07/19 14:14: Urine Color Yellow, Urine Clarity Clear, Urine pH 7.5, Ur S pecific Fenton 1.015, Urine Protein Negative, Urine Glucose (UA) Negative, Urine Ketones Negative, Urine Blood Negative, Urine Nitrite Negative, Urine Bilirubin Negative, Urine Urobilinogen 1.0, Ur Leukocyte Esterase Negative 06/07/19 14:14: Influ A Molecular Assay Negative by naat, Influ B Molecular Assay Negative by naat 06/07/19 13:48: Sodium 139.0, Potassium 3.76, Chloride 100.4, Carbon Dioxide 29.8, Anion Gap 12.56, BUN 14.6, Creatinine 1.23, Estimated GFR (MDRD) 43.00, BUN/Creatinine Ratio 11.86, Glucose 91.4, Calcium 9.35, Total Bilirubin 0.66, AST 27.0, ALT 12.6, Alkaline Phosphatase 41.8 L, Total Creatine Kinase 52.2, Troponin I < 0.012, Total Protein 7.61, Albumin 4.48, Globulin 3.13, Albumin/Globulin Ratio 1.43 06/07/19 13:48: WBC 9.10, RBC 3.95 L, Hgb 11.4 L, Hct 35.8 L, MCV 90.6, MCH 28.9, MCHC 31.8, RDW Coeff of Aminah 12.9, Plt Count 222, Immature Gran % (Auto) 0.3, Neut % (Auto) 72.6, Lymph % (Auto) 16.3, [place] % (Auto) 5.8, Eos % (Auto) 4.7, Baso % (Auto) 0.3, Immature Gran # (Auto) 0.0, Neut # (Auto) 6.6, Lymph # (Auto) 1.5, [place] # (Auto) 0.5, Eos # (Auto) 0.4, Baso # (Auto) 0.0 ASSESSMENT: Please see below. 1. Early left lower lobe pneumonia. 2. Dehydration, improved. 3. Fever, improved. PLAN: 1. CT chest with and without contrast. 2. Decadron. 3. Xopenex b.i.d. Plan and coordination of the patient's care discussed in the presence of Play Reader and nurse. CONDITION: Stable SCRIBED BY: ISABELLE UMANZOR Ordering Box Operator scribed while in presence of service performed by Irina Donald/Laura Yung [employer] on 06/08/19 ([id number])
--- NOTE | 2019-06-08 11:59 | CT ---
EXAM: CT of the chest with and without contrast History: Abnormal chest radiograph, fever. Comparison: Chest radiograph 06/07/2019 Technique: Multiplanar CT images through the chest were obtained with and without the administration of IV contrast Findings: Heart size is normal. Coronary calcifications and valvular calcifications of the heart. No pericardial effusion. Great vessels are unremarkable. No pathologic enlarged thoracic lymph node s. Calcified mediastinal and hilar lymph nodes are seen. No consolidation. No pleural fluid and no pneumothorax. No suspicious lung masses or lung nodules. Within the visualized upper abdomen, no acute findings. No acute osseous abnormalities. Impression: No acute intrathoracic process
--- NOTE | 2019-06-08 14:44 | PN ---
DATE OF SERVICE: 06/08/19 SUBJECTIVE: The patient was seen and examined with the Nurse Practitioner. The patient is feeling a lot better and afebrile. Her appetite has improved and her cardiovascular status stable. TIME SPENT: More than 30 minutes. Plan and coordination of the patient's care discussed in the presence of nurse. VALENTINE
[2019-06-08] MEDS: XOPENEX 1.25 MG NEB SCH (18:00)
[2019-06-09] MEDS: XOPENEX 1.25 MG NEB SCH (05:30)
[2019-06-09] MEDS: PROTONIX PO SCH (05:30)
[2019-06-09 05:55] VITALS: BP 145/69; TEMP 98.1
[2019-06-09] MEDS: SODIUM CHLORIDE 1,000 ML IV SCH (06:55)
[2019-06-09] MEDS: ZOCOR PO SCH (08:25)
[2019-06-09] MEDS: DYAZIDE PO SCH (08:25)
[2019-06-09] MEDS: NEURONTIN PO SCH (08:25)
[2019-06-09] MEDS: ASPIRIN EC PO SCH (08:26)
[2019-06-09] MEDS: CALCIUM 500 + VIT D 200 MG TABLET PO SCH (08:26)
[2019-06-09] MEDS: ROCEPHIN 1 GM/50 ML D5W 1 GM/50 ML BAG IV SCH (08:28)
[2019-06-09] MEDS: OMEGA-3 FISH OIL PO SCH (08:28)
--- NOTE | 2019-06-20 14:43 | PN ---
DATE OF SERVICE: 06/07/19 SUBJECTIVE: The patient was seen and examined with the nurse practitioner and was hospitalized with fever, cough, congestion. She is going to be treated with IV fluids and antibiotics. She is also having Influenza A and B titers done. TIME SPENT: More than 30 minutes. Plan and coordination of the patient's care discussed in the presence of nurse. VALENTINE
--- NOTE | 2019-06-21 09:33 | DS ---
DATE OF SERVICE: 06/09/19 FINAL DIAGNOSIS: 1. Pneumonia 2. Chronic anemia 3. Hypertension 4. Dyslipidemia 5. Osteoporosis 6. Generalized osteoarthritis 7. Systolic murmur 8. Reflux disease DISCHARGE INSTRUCTIONS: Discharge home. Instruction to come back on Tuesday for followup in the morning as scheduled. Advised to rest. Continue all the home medications. MEDICATIONS AT DISCHARGE: Aspirin Simvastatin Dyazide Tramadol Xanax Gabapentin Hydrocodone Protonix NEW PRESCRIPTIONS: Keflex 500mg TID for 5 days Prednisone 10mg daily for 5 days DIET INSTRUCTIONS: Drinking plenty of fluids. ACTIVITY: Get plenty of rest SMOKING: Former Smoker, quit smoking 25 years ago DISEASE SPECIFIC EDUCATION: New medications Followup Hydration Echo Stress echo Steroids LABS: Hgb 10.9, hct 34, WBC 10,000 normal differential, creatinine 1, BUN 15, potassium 3.7 HOSPITAL COURSE: 73 year old white female was seen in the office and she complained of having fever for past 7 days. She has been going to work and appetite has been poor. She looked pale and was hospitalized. She was started on antibiotics. Chest x- ray earlier showed nodular infiltrate in one of the lung feldman. Followup CT scan was negative. The patient's condition improved with IV fluids, IV antibiotics Rocephin and steroids. She felt a lot better. During the stay in the hospital for 48 hours she was practically afebrile. Hydration status improved. The WBC was practically normal. Rapid Flu test was negative. Cultures were negative. The patient was discharged home in stable condition. She could have stayed one more day but her grandson had an emergency surgery on the kidney in [place] so she wanted to leave. Her daughter was present in the room. She is the one who is going to be driving her. The patient is strongly advised to rest, eat and drink fluids. If any fever, chills, nausea or vomiting go to the emergency room. The patient has systolic murmur known for the past several years. Sound over the precordial area for now. She will undergo echo and stress echo as an outpatient. That will be scheduled when she comes back for the office visit. She does say that she gets short of breath on minimal exertion. She will undergo PFT, echo and stress echo. CONDITION: Stable TIME SPENT: More than [address] [facility] SHOREIrina
--- NOTE | 2019-06-21 09:39 | PN ---
DATE OF SERVICE: 06/09/19 DISCHARGE NOTE SUBJECTIVE: 73 year old white female hospitalized with fever and dehydration. Chest x-ray showed nodular infiltrate. The patient was treated with IV Rocephin. Steroids were used. The patient also had possibility of right upper extremity cellulitis which seems to have resolved. Lower legs have varicose veins with mild swelling which has resolved. The patient is feeling better. Appetite has improved. REVIEW OF SYSTEMS: CONSTITUTIONAL: No night sweats. Mild fatigue. No fever or chills. HEENT: Eyes: No visual changes. No eye pain. No eye discharge. ENT: No runny nose. No epistaxis. No sinus pain. No sore throat. No odynophagia. No congestion. RESPIRATORY: No cough, no congestion. No hemoptysis. No shortness of breath. CARDIOVASCULAR: No angina symptoms. No CHF symptoms. No atypical chest pain for CAD. No palpitations. No PND. No orthopnea. GASTROINTESTINAL: No abdominal pain. No nausea or vomiting. No diarrhea or constipation. No hematemesis. No hematochezia. GENITOURINARY: No urgency. No frequency. No dysuria. No hematuria. No obstructive symptoms. No discharge. No pain. No significant abnormal bleeding. MUSCULOSKELETAL: No musculoskeletal pain; no joint swelling. NEUROLOGICAL: No headache. No neck pain. No syncope. No seizures. No dizziness. PSYCHIATRIC: Not anxious. No depression. No suicidal thoughts. No homicidal thoughts. SKIN: No rash. No lesions. No wounds. ENDOCRINE: No unexplained weight loss. No weight gain. HEMATOLOGIC/LYMPHATIC: No anemia. No purpura. No petechiae. No prolonged or excessive bleeding. No palpable lymph nodes. PHYSICAL EXAMINATION: VITAL SIGNS: Temperature 98.1, pulse 74, respiratory rate 18, blood pressure 145/69 and pulse ox 97%. HEENT: Head normocephalic, atraumatic. Eyes: Extraocular muscles are intact. Pupils are equal, round and reactive to light and accommodation. Ears: No lesions. Nose appeared normal. Throat: No exudate or erythema. NECK: Supple. No JVD, no carotid bruit. No lymphadenopathy or thyromegaly. LUNGS: Decreased breath sounds but clear to auscultation. Percussion note normal. Chest symmetrical. HEART: S1, S2, no S3. Grade II/ systolic murmurs in the aortic area and also axillary area. No cyanosis or clubbing. No ascites. Pulses: Dorsalis pedis and posterior tibial pulses +1 to +2 bilaterally. ABDOMEN: Soft. Nontender. Bowel sounds active. No CVA tenderness. No mass felt. EXTREMITIES: No edema. Full range of motion of all extremities, equal. Varicose veins. NEUROLOGIC: No focal deficit. Cranial nerves II through XII are grossly intact. No headache, no double vision or headache. SKIN: Not dry. Intact. Turgor - normal. LYMPHATIC: No palpable lymph nodes/no lymphedema. MUSCULOSKELETAL: Normal joints with no swelling. Muscle tone is normal. LABS: Hgb 10.9, hct 34, WBC 10,000 normal differential, creatinine 1, BUN 15, potassium 3.7 ASSESSMENT: 1. Pneumonitis seems to be resolving 2. Dehydration resolved 3. Right upper extremity cellulitis resolved, redness in the lower extremity also has subsided. PLAN: 1. Give the patient Keflex 500mg TID for 5 days 2. Prednisone 10mg daily for 5 days 3. The patient is to be seen on Tuesday 4. Advised to rest 5. Increase fluid intake. 6. The patient will have echo and stress echo done as outpatient with PFT 7. HGB and HCT will be monitored as an outpatient 8. Advised to have colonoscopy done as per recommendation. TIME SPENT: More than 30 minutes. Plan and coordination of the patient's care discussed in the presence of nurse. VALENTINE
--- NOTE | 2019-06-22 12:53 | HP ---
DATE OF SERVICE: 06/07/19 REASON FOR HOSPITALIZATION/HISTORY OF PRESENT ILLNESS: 73 year old white female hospitalized for fever started Tuesday AM with vomiting till noon and temperature of 101.8 this AM. No diarrhea and not coughing. PAST MEDICAL HISTORY: Chronic kidney disease stage 2 GERD Anemia Hypertension Headaches Osteoarthritis Sinusitis psoatic arthritis PAST SURGICAL HISTORY: Breast Biopsy, years ago normal REVIEW OF SYSTEMS: CONSTITUTIONAL: Fever, Fatigue. HEENT: No sinus drainage, no sore throat. RESPIRATORY: No cough, no congestion. CARDIOVASCULAR: No atypical chest pain for coronary artery disease. No angina, CHF symptoms, palpitations or shortness of breath. GASTROINTESTINAL: No melena or abdominal pain. No GERD. GENITOURINARY: No hematuria, no prostatism, no polyuria. HISTOLOGY AIDE: No blackout, no dizziness, no headache, no double vision. MUSCULOSKELETAL: No osteoarthritis pain, Joint swelling right hand. ENDOCRINE: No weight loss, no weight gain. SKIN: Not dry, no rash. PSYCHIATRIC: Not anxious, no depression, no suicidal thoughts, no homicidal thoughts. SOCIAL HISTORY: Marital Status: . Alcohol Usage: No. Tobacco Usage: No. FAMILY HISTORY: Father Mother Brother 5 Sister 2 MEDICATIONS: Triamterene/HCTZ 37.5/25 Aspirin 81mg Po daily Simvastatin 40mg Po daily Flax seed oil Calcium with Vitamin D Fish oil Nasonex PRN Flonase PRN Proventil HFA QID Carafate 1 gram QID Tramadol 50mg TID PRN Protonix 40mg PO daily Prolia 60mg Q 5 months Xanax 0.25mg BID Celebrex 200mg BID Gabapentin 300mg BID Hydrocodone 5-325mg BID PRN ALLERGIES: Vioxx Celebrex Mobic PHYSICAL EXAMINATION: V/S: Pulse 86, blood pressure 146/70, temperature 99.5, oxygen saturation 94%. Height 5'2, BMI 32.3 and Weight 177.0 GENERAL APPEARANCE: Oriented times three. HEENT: Pale. Dry mucus membranes NECK: No JVP, no bruits. RESPIRATORY: Lungs are clear. CARDIOVASCULAR: S1, S2, no S3, no murmur. No cyanosis, clubbing. No ascites. GI/ABDOMEN: No tenderness. Bowel sounds are active. EXTREMITIES: Right hand red and swollen. Pulses +1, equal. HISTOLOGY AIDE: Deep tendon reflexes, sensory, motor and gait all normal. RECTAL: 07/16 Dr. Martinez/PELVIC: Dr. Lim. Mammogram 02/15 [facility]. ASSESSMENT: 1. Fever 2. Dehydration 3. Right upper extremity cellulitis 4. Left sciatica 5. Status post right torn meniscus Dr. Leger 12/17 6. Left knee pain 7. Psoatic arthritis 8. Chronic kidney disease stage 2 9. Coronary angiogram, Prolia - 10.GERD 11.Hypertension 12.Hypoglycemia 13.Possible Raynaud's 14.Bronchial asthma 15.Anemia 16.Headaches 17.Sinusitis 18.Osteoarthritis PLAN: 1. Admit 2. Routine telemetry orders 3. CBC/CMP now and daily 4. U/A and urine culture 5. Chest x-ray 6. Blood culture times 2 7. Rocephin 1 gram IV daily times 5 days 8. Normal saline at 75cc an hour IV 9. Regular diet 10.Continue home medications 11.1cc Decadron IM 4mg times one dose. TIME SPENT: More than 70 minutes. MTDD
== END 2019-06-09 12:30 | disposition home or self-care (01) | DRG 603 ==
LOC: MEDSURG B 12:54
PROVIDERS: ADMIT Internal Medicine; ATTEND Internal Medicine

== ENCOUNTER 2024-12-06 14:04 | Observation (INO) ==
[2024-12-06 14:17] VITALS: RESP 18
[2024-12-06 14:43] LABS: BASOPHILS % (AUTO) 0.8 % (0.0-3.0); EOSINOPHILS # (AUTO) 0.1 K/ul (0.0-0.7); EOSINOPHILS % (AUTO) 2.1 % (0.0-7.0); HEMATOCRIT 39.2 % (37.0-47.0); HEMOGLOBIN 12.3 g/dl (12.0-16.0); IMMATURE GRANULOCYTE % (AUTO) 0.2 % (0.0-5.0); LYMPHOCYTES # (AUTO) 1.5 K/uL (0.60-3.4); LYMPHOCYTES % (AUTO) 29.3 (10.0-50.0); MEAN CORPUSCULAR HEMOGLOBIN 28.2 pg (27.0-31.0); MEAN CORPUSCULAR HGB CONC 31.4 (31.8-35.4); MEAN CORPUSCULAR VOLUME 89.9 fl (81.0-99.0); MONOCYTES # (AUTO) 0.4 K/uL (0.4-2.0); MONOCYTES % (AUTO) 7.7 (0-10); NEUTROPHILS # (AUTO) 3.1 K/ul (2.0-6.9); NEUTROPHILS % (AUTO) 59.9 % (42.2-75.2); PLATELET COUNT 176 10^3/uL (140-440); RDW COEFFICIENT OF VARIATION 13.5 % (11.6-14.8); RED BLOOD COUNT 4.36 10^6/ul (4.20-5.40); WHITE BLOOD COUNT 5.22 K/ul (4.6-10.2)
--- NOTE | 2024-12-06 14:57 | DI ---
EXAM: CHEST RADIOGRAPH TECHNIQUE: Single frontal chest radiograph. HISTORY: radiating pain right arm post 1 year valve replace COMPARISON: 10/19/2021 IMPRESSION: Heart size is mildly enlarged. Status post TAVR procedure. No focal infiltrate, effusion , or pneumothorax is identified. Pulmonary vasculature and mediastinal contours are otherwise intact.
[2024-12-06 15:00] LABS: ALANINE AMINOTRANSFERASE 11.5 U/L (0-35); ALBUMIN 4.12 g/dL (3.5-5.0); ALKALINE PHOSPHATASE 40.5 U/L (53-141); ASPARTATE AMINO TRANSFERASE 26.4 U/L (14-36); BLOOD UREA NITROGEN 13.7 mg/dL (7-17); CARBON DIOXIDE 30.3 mmol/L (22-30.0); CREATININE 1.27 mg/dL (0.60-1.30); GLUCOSE 122.4 mg/dL (74-106); POTASSIUM 3.96 mmol/L (3.5-5.1); SODIUM 140.4 mmol/L (134.5-145); TOTAL PROTEIN 6.83 g/dL (6.3-8.2)
[2024-12-06 15:02] LABS: MOLECULAR FLU A NEGATIVE BY NAAT (NEGATIVE); MOLECULAR FLU B NEGATIVE BY NAAT (NEGATIVE); SARS COV-2 RNA RAPID NAAT NEGATIVE (NEGATIVE)
[2024-12-06 15:14] LABS: TROPONIN I < 0.012 ng/ml (0.0000-0.120)
--- NOTE | 2024-12-06 15:15 | ED.PDOC ---
General ED Provider: Dr. THOMAS AC DO Chief Complaint: Extremity Swelling/Pain Stated Complaint: Patient has a known history of lower extremity swelling intermittently. Patient is on diuretics and despite that she has noticed an increase in the swelling of her legs. But what brings her here today is radiating burning and tingling down the right arm. This started yesterday and has not resolved. Her range of motion is intact her strength is intact. She does not demonstrate any facial neurologic deficits or sensory or motor deficit. Patient is not on any new medication but she is on multiple medications. Patient also 1 year ago had a valve replacement. Time Seen by Provider: 12/06/24 14:20 Mode of Arrival: Walk-In Information Source: Patient Exam Limitations: No limitations Primary Care Provider: FRANNIE DONALD MD Nursing and Triage Documentation Reviewed and Agree: Yes Does Patient Take Opioids?: No Is Patient Opioid Naive?: Yes What is Opioid Naive?: *Opioid Naive implies the patient is not already taking opioids or not chronically receiving opioids on a daily basis. *PRN dosing is not "usually" associated with tolerance. *Patients are at higher risk of over-sedation and aspiration. Is Patient Opioid Tolerant?: No What is Opioid Tolerant?: *Opioid Tolerance implies less than the expected response to an opioid. *Acquired tolerance is defined by the patient taking 60mg of oral morphine daily (or equianalgesic dose of another opioid) for 1 week or more. *Often associated with chronic pain. *May take more than usual dose to achieve desired pain control. Review of Systems Review Of Systems Constitutional: Reports Other (Tingling pain radiating down right shoulder down to right hand. This has been intermittent since yesterday. Also swelling of bilateral lower extremity.) Eyes: Reports No symptoms Ears, Nose, Mouth, Throat: Reports No symptoms Respiratory: Reports No symptoms Cardiac: Reports Other (Swelling of bilateral legs as well as arm pain intermittent) GI: Reports No symptoms : Reports No symptoms Musculoskeletal: Reports Muscle pain Neurological: Reports Numbness and Tingling (With pain right upper extremity radiating from shoulder down to fingertips intermittently) [facility] Medical History Severe aortic valve stenosis CARDIAC CATH DONE 05/08/24 AT PSY[facility]IATRIC normal LV function and LV size. Asymptomatic I35.0 - Nonrheumatic aortic (valve) stenosis (ICD-10) Moderate aortic valve insufficiency I35.1 - Nonrheumatic aortic (valve) insufficiency (ICD-10) Severe aortic stenosis I35.0 - Nonrheumatic aortic (valve) stenosis (ICD-10) Bursitis of left shoulder M75.52 - Bursitis of left shoulder (ICD-10) Family History Mother Alzheimer's dementia FATHER Cardiac disease Social History Smoking and tobacco status: Former smoker Tobacco: How many years used: 20 Alcohol intake: never Substance use type: does not use Special mar needs: No Agree to transfusion: Yes Adopted: No Caregiver/support person: No Foster care: No Household members: spouse Housing: house Marital status: M Lives independently: Yes Daycare: no daycare Highest education level completed: 7th grade service: No assisted: No Current occupational status: retired History of recent travel: No Do you think of yourself as: straight/heterosexual Current gender identity: female Seatbelt use: always Drives intoxicated or rides with intoxicated taxi driver: No Water heater temperature set < 120 degrees: Yes Working smoke detector in home: Yes Fire extinguisher in home: Yes Carbon monoxide detector in home: Yes Surgical History History of hernia repair Z98.890 - Other specified postprocedural states (ICD-10) Z87.19 - Personal history of other diseases of the digestive system (ICD-10) History of cardiac cath normal 2011 Z98.890 - Other specified postprocedural states (ICD-10) History of cholecystectomy Z90.49 - Acquired absence of other specified parts of digestive tract (ICD- 10) History of knee surgery RIGHT MENISCUS SURGERY - cassy Z98.890 - Other specified postprocedural states (ICD-10) No history of previous surgery History of dental surgery Z92.89 - Personal history of other medical treatment (ICD-10) History of breast biopsy LEFT Z98.890 - Other specified postprocedural states (ICD-10) Female Reproductive History Menstrual Hx Hysterectomy: No Hx Tubal Ligation: Yes Physical Exam Physical Exam Appearance: Reports Well-appearing Ill-appearing: None Eyes: Reports EOMI and Conjunctiva clear Neck: Supple Respiratory: Reports Airway patent, Breath sounds clear and Breath sounds equal Cardiovascular: Reports RRR and Pulses normal GI/: Reports Soft Musculoskeletal: Reports Normal strength, ROM intact, Edema and Other (Tingling pain sometimes numbness radiating down right arm into hand) Skin: Reports Warm, Dry and Normal color Neurological: Reports Sensation intact, Motor intact, Cranial nerves intact, Alert, Oriented, Alert to verbal and Alert to pain Interpretation EKG Interpretation EKG Interpretation By: ED Physician (Ventricular rate 76 bpm normal sinus rhythm with left bundle branch block otherwise normal) Time of EKG #1: 14:29 Rate: Tachy (Sinus tachycardia with right atrial enlargement and nonspecific T wave abnormality consistent with pulmonary disease.) Radiology Interpretation Radiology Interpretation By: Radiologist (CTA chest neg for PE) Radiology Results: Negative Exam Interpreted: Portable CXR Course Course 12/06/24 14:42 12/06/24 14:42 Orders, Labs, Meds: Lab Review 12/06/24 12/06/24 12/06/24 14:38 14:42 15:56 WBC 5.22 RBC 4.36 Hgb 12.3 Hct 39.2 MCV 89.9 MCH 28.2 MCHC 31.4 L RDW Coeff of Aminah 13.5 Plt Count 176 Immature Gran % (Auto) 0.2 Neut % (Auto) 59.9 Lymph % (Auto) 29.3 Meeker % (Auto) 7.7 Eos % (Auto) 2.1 Baso % (Auto) 0.8 Neut # (Auto) 3.1 Lymph # (Auto) 1.5 Meeker # (Auto) 0.4 Eos # (Auto) 0.1 Baso # (Auto) 0.0 Immature Gran # (Auto) 0.0 Sodium 140.4 Potassium 3.96 Chloride 101.0 Carbon Dioxide 30.3 H Anion Gap 13.06 BUN 13.7 Creatinine 1.27 Estimated GFR (MDRD) 41.00 BUN/Creatinine Ratio 10.78 Glucose 122.4 H Lactic Acid 1.76 Calcium 9.50 Total Bilirubin 0.50 AST 26.4 ALT 11.5 Alkaline Phosphatase 40.5 L Troponin I < 0.012 NT-Pro-B Natriuret Pep 1020 H Total Protein 6.83 Albumin 4.12 Globulin 2.71 Albumin/Globulin Ratio 1.52 D-Dimer 600.47 H Urine Opiates Screen Negative Ur Oxycodone Screen Negative Urine Methadone Screen Negative Ur Barbiturates Screen Negative U Tricyclic Antidepress Negative Ur Phencyclidine Scrn Negative Ur Amphetamine Screen Negative U Methamphetamines Scrn Negative U Benzodiazepines Scrn Negative Urine Cocaine Screen Negative U Cannabinoids Screen Negative Influ A Molecular Assay Negative by naat Influ B Molecular Assay Negative by naat SARS CoV-2 RNA Rapid CHON Negative Orders Category Date Time Status EKG-(ED ONLY) Stat CARDIO 12/06/24 14:29 Completed NPO REMINDER: IMAGING ONCE CARE 12/06/24 16:35 Active ED APPLY O2 .ONCE EMERGENCY 12/06/24 14:29 Active ED SEPHORA OPERATIONS CONSULTANT APPLIED .ONCE EMERGENCY 12/06/24 14:29 Active CBC W/ AUTO DIFF Stat LAB 12/06/24 14:42 Completed COMPREHENSIVE METABOLIC PANEL Stat LAB 12/06/24 14:42 Completed D-DIMER Stat LAB 12/06/24 14:42 Completed DRUG SCREEN, URINE, RAPID Stat LAB 12/06/24 15:56 Completed FLU A/B MOLECULAR Stat LAB 12/06/24 14:38 Completed LACTIC ACID Stat LAB 12/06/24 14:42 Completed NT-PROBNP(ED) Stat LAB 12/06/24 14:42 Completed SARS COV-2 RNA RAPID CHON Stat LAB 12/06/24 14:38 Completed TROPONIN I Stat LAB 12/06/24 14:42 Completed Iodixanol [Visipaque 320 mg/ml 100Ml] Meds 12/06/24 16:45 Discontinued 100 ml IVP ONCE ONE Sodium Chloride 0.9% [Sodium Chloride] 1,000 ml Meds 12/06/24 16:36 Active IV BOLUS CHEST, 1V AP ONLY Stat RADS 12/06/24 14:30 Completed CTA CHEST PE PROTOCOL Stat RADS 12/06/24 16:35 Completed Medications Generic Name Dose Route Start Last Admin Trade Name Freq PRN Reason Stop Dose Admin Sodium Chloride 1,000 mls @ 500 mls/hr 12/06/24 16:36 12/06/24 17:24 Sodium Chloride IV 12/06/24 18:35 500 mls/hr BOLUS ONE Administration Discontinued Medications Generic Name Dose Route Start Last Admin Trade Name Freq PRN Reason Stop Dose Admin Iodixanol 100 ml 12/06/24 16:45 05/08/25 16:51 Iodixanol 320 Mg/Ml 100ml IVP 12/06/24 16:46 100 ml ONCE ONE Administration Vital Signs: Temp Pulse Resp BP Pulse Ox 12/06/24 14:07 98.0 F 76 18 170/73 H 96 OSORIO Risk Score Age >/= 65: Yes >/= 3 CAD Risk Factors: Yes Known CAD (Stenosis >/= 50%): Yes ASA Use in Past 7 Days: Yes Severe Angina (>/= 2 episodes in 24 hours): No EKG ST Changes >/= 0.5mm: No Postive Cardiac Marker: No OSORIO Total Score: 4 OSORIO Risk Score: Risk Score Odds of by 30D 0 0.1 (0.1-0.2) 1 0.3 (0.2-0.3) 2 0.4 (0.3-0.5) 3 0.7 (0.6-0.9) 4 1.2 (1.0-1.5) 5 2.2 (1.9-2.6) 6 3.0 (2.5-3.6) 7 4.8 (3.8-6.1) Physician Progress Note: Patient came in for 2 reasons 1 numbness tingling and burning sensation down her right arm into her hand. Range of motion intact sensation was odd intermittently starting yesterday. No chest pain no shortness of breath. Also patient was increasing in fluid peripherally to the lower extremity. Patient is on 20 mg of Lasix daily she increased and doubled her dose yesterday and resulted in micturition all night and still has excessive fluid where her legs feel tight. Patient's BNP is elevated she was given additional 40 mg of Lasix IV and D-dimer was elevated her CTA to rule out PE is negative her chest x-ray does not show any fractures in the shoulder girdle or clavicle. Her EKG does not indicate any acute changes or myocardial infarction. Her troponin remains within normal limits. Her electrolytes are within normal limits. No active infection her white count is normal with no left shift. She is negative for flu and COVID. Her daughter is at bedside we discussed a strategy because she is increasing in tightness and edema to the lower extremities she may require IV diuretics which are stronger than 20 mg of oral Lasix daily. It is important to get to her early when she is in early congestive heart failure to avoid cardiac strain. This was discussed with the family and the patient agreed and will be admitted to observation with telemetry and have a more scheduled diuresis and stronger diuresis then she can get at home. Then she will be reassessed. Discharge Plan Discharge Patient Disposition: PLACED OBSERVATION Discharge Problem: CHF (congestive heart failure) Qualifiers: Heart failure type: unspecified Heart failure chronicity: acute Qualified Code(s): I50.9 - Heart failure, unspecified Prescriptions: No Action aspirin 81 mg tablet,delayed release (DR/EC) 81 mg PO DAILY Qty: 30 0RF albuterol sulfate 90 mcg/actuation HFA aerosol inhaler 2 puff inhalation Q4-6H PRN (Reason: shortness of breath or wheezing) Qty: 8.5 1RF tramadol 50 mg tablet 50 mg PO TID PRN (Reason: pain) Qty: 270 2RF furosemide 20 mg tablet 20 mg PO DAILY Qty: 90 1RF simvastatin 40 mg tablet 40 mg PO DAILY Qty: 90 1RF amlodipine 5 mg tablet See Rx Instructions .ROUTE .COMPLEX Qty: 90 1RF Dose Instruction: TAKE ONE TABLET DAILY GENERIC FOR NORVASC Rx Instructions: TAKE ONE TABLET DAILY GENERIC FOR NORVASC omeprazole 40 mg capsule,delayed release(DR/EC) See Rx Instructions .ROUTE .COMPLEX Qty: 90 1RF Dose Instruction: TAKE 1 CAPSULE DAILY GENERIC FOR PRILOSEC Rx Instructions: TAKE 1 CAPSULE DAILY GENERIC FOR PRILOSEC calcium carbonate-vitamin D3 [Calcium 600 with Vitamin D3] 600 mg(1,500mg) - 500 unit Capsule 1 cap PO DAILY potassium citrate 99 mg capsule 99 mg PO DAILY CoQmax Ubiquinol 200 mg capsule 200 mg PO DAILY cetirizine [Zyrtec] 10 mg tablet 10 mg PO DAILY PRN (Reason: allergy symptoms) krill oil [id number] mg capsule 1 cap PO BID coenzyme A01-flroxwy E 100-100 mg-unit capsule 1 cap PO QDAY vitamin E (dl, acetate) 180 mg (400 unit) capsule 180 mg PO QDAY Did you review [place] [employer] OPERATOR HELPER for ALL controlled substances?: Not Applicable ED Provider: THOMAS AC Condition: Stable
[2024-12-06 16:13] LABS: AMPHETAMINE SCREEN,URINE NEGATIVE (NEGATIVE); BARBITURATE SCREEN,URINE NEGATIVE (NEGATIVE); BENZODIAZEPINES SCREEN,URINE NEGATIVE (NEGATIVE); CANNABINOID SCREEN,URINE NEGATIVE (NEGATIVE); COCAIN SCREEN,URINE NEGATIVE (NEGATIVE); METHADONE URINE SCREEN NEGATIVE (NEGATIVE); METHAMPHETAMINES SCREEN,URINE NEGATIVE (NEGATIVE); OPIATE SCREEN,URINE NEGATIVE (NEGATIVE); OXYCODONE URINE SCREEN NEGATIVE (NEGATIVE); PHENCYCLIDINE SCREEN,URINE NEGATIVE (NEGATIVE); TRICYCLIC ANTIDEPRESSANTS URIN NEGATIVE (NEGATIVE)
[2024-12-06] MEDS: VISIPAQUE 320 MG/ML 100ML IVP ONE (16:51)
[2024-12-06] MEDS: SODIUM CHLORIDE 1,000 ML IV ONE (17:24)
--- NOTE | 2024-12-06 17:35 | CT ---
EXAM: CTA CHEST FOR PE HISTORY: Elevated D-dimer COMPARISON: Correlation with chest radiograph from earlier the same day TECHNIQUE: CTA of the chest was performed from the lung apices to the upper abdomen after Omnipaqu e IV contrast was administered using PE protocol. 3-D imaging was also provided. FINDINGS: No PE. No CT findings of acute right ventricular strain or pulmonary infarct. Postsurgical changes from TAVR. The heart is mildly enlarged. No pericardial effusion. Limited evaluation for pulmonary nodule secondary to artifact. However, as seen, no findings of a camacho spicious nodule. Punctate nodule in the right upper lobe (axial series seven, image 48). Calcified g ranuloma in the left lower lobe. Mosaic attenuation in the lungs, nonspecific. Atelectasis in the lingula and dependent lower lobes. IMPRESSION: No PE. Mosaic attenuation in the lungs, nonspecific. This can be seen with chronic lung disease, air trappi ng as well as infectious and inflammatory etiologies. Clinical follow-up with follow up imaging as w arranted. No findings of focal pneumonia. 0.9 cm left breast nodule, nonspecific. Clinical follow-up with follow up breast imaging as warrante d. All CT scans are performed using dose optimization techniques as appropriate to the performed exam an d include at least one of the following: Automated exposure control, adjustment of the mA and/or kV according t o size, and the use of iterative reconstruction technique.
[2024-12-06] MEDS ORDERED: ZOFRAN ODT PO PRN (18:43)
[2024-12-06] MEDS ORDERED: TYLENOL PO PRN (18:43)
[2024-12-06] MEDS: LASIX IVP ONE (18:44)
[2024-12-06 20:31] VITALS: BMI 32.0
[2024-12-06] MEDS ORDERED: VENTOLIN HFA IH PRN (20:43)
[2024-12-06] MEDS ORDERED: ZYRTEC PO PRN (20:43)
[2024-12-06] MEDS ORDERED: ULTRAM PO PRN (20:43)
[2024-12-06] MEDS: ZOCOR PO SCH (22:11)
[2024-12-06] MEDS: ASPIRIN EC PO SCH (22:11)
[2024-12-06] MEDS: NORVASC PO SCH (22:11)
[2024-12-07] MEDS: LASIX IVP SCH (01:56)
[2024-12-07] MEDS: PRILOSEC PO SCH (05:09)
[2024-12-07 05:11] VITALS: BP 130/68; PULSE 65; TEMP 97.5
[2024-12-07 05:43] LABS: BASOPHILS % (AUTO) 0.5 % (0.0-3.0); EOSINOPHILS # (AUTO) 0.1 K/ul (0.0-0.7); EOSINOPHILS % (AUTO) 2.2 % (0.0-7.0); HEMATOCRIT 42.8 % (37.0-47.0); HEMOGLOBIN 13.6 g/dl (12.0-16.0); IMMATURE GRANULOCYTE % (AUTO) 0.2 % (0.0-5.0); LYMPHOCYTES # (AUTO) 1.8 K/uL (0.60-3.4); LYMPHOCYTES % (AUTO) 31.8 (10.0-50.0); MEAN CORPUSCULAR HGB CONC 31.8 (31.8-35.4); MEAN CORPUSCULAR VOLUME 88.2 fl (81.0-99.0); MONOCYTES # (AUTO) 0.4 K/uL (0.4-2.0); NEUTROPHILS # (AUTO) 3.2 K/ul (2.0-6.9); NEUTROPHILS % (AUTO) 58.3 % (42.2-75.2); PLATELET COUNT 196 10^3/uL (140-440); RDW COEFFICIENT OF VARIATION 13.5 % (11.6-14.8); RED BLOOD COUNT 4.85 10^6/ul (4.20-5.40); WHITE BLOOD COUNT 5.56 K/ul (4.6-10.2)
[2024-12-07 05:59] LABS: ALANINE AMINOTRANSFERASE 11.9 U/L (0-35); ALBUMIN 4.24 g/dL (3.5-5.0); ALKALINE PHOSPHATASE 44.7 U/L (53-141); ASPARTATE AMINO TRANSFERASE 25.3 U/L (14-36); BILIRUBIN,TOTAL 0.59 mg/dL (0.2-1.3); BLOOD UREA NITROGEN 13.7 mg/dL (7-17); CALCIUM 9.23 mg/dL (8.4-10.2); CARBON DIOXIDE 30.9 mmol/L (22-30.0); CHLORIDE 100.7 mmol/L (98-107); CREATININE 1.29 mg/dL (0.60-1.30); GLUCOSE 108.6 mg/dL (74-106); POTASSIUM 3.67 mmol/L (3.5-5.1); SODIUM 142.7 mmol/L (134.5-145); TOTAL PROTEIN 7.12 g/dL (6.3-8.2)
--- NOTE | 2024-12-07 08:35 | PCM.SS ---
Provider Provider: ADELINA OBANDO, [facility] Admission Date Admission Date: 12/06/24 Discharge Date Discharge Date: 12/07/24 Primary Care Physician Primary Care Physician: FRANNIE NOLAN MD Chief Complaint Reason For Visit: CHF History of Present Illness History of Present Illness: Admitted 12/06/24 19:30, this 79 year old /WHITE/F with pmh of CHF, TAVR, GERD, asthma, CKD, and HTN presented to the ER with complaints of lower extremity edema. States she noticed her BLE starting to swell worse than normal on Tuesday morning. She took an extra dose of her lasix and made sure to prop her legs up throughout the day and at night. [place] that yesterday morning it had not improved at all despite her efforts. Denies any shortness of breath, chest pain or pressure, fever, or other symptoms. BNP elevated in ER. Rest of work-up mostly unremarkable. Admitted to med/surg observation. Feels that her legs have greatly improved with diuresis overnight and requesting discharge. [facility] Medical History Severe aortic valve stenosis CARDIAC CATH DONE 05/08/24 AT [facility] normal LV function and LV size. Asymptomatic I35.0 - Nonrheumatic aortic (valve) stenosis (ICD-10) Moderate aortic valve insufficiency I35.1 - Nonrheumatic aortic (valve) insufficiency (ICD-10) Severe aortic stenosis I35.0 - Nonrheumatic aortic (valve) stenosis (ICD-10) Bursitis of left shoulder M75.52 - Bursitis of left shoulder (ICD-10) Surgical History History of hernia repair Z98.890 - Other specified postprocedural states (ICD-10) Z87.19 - Personal history of other diseases of the digestive system (ICD-10) History of cardiac cath normal 2011 Z98.890 - Other specified postprocedural states (ICD-10) History of cholecystectomy Z90.49 - Acquired absence of other specified parts of digestive tract (ICD- 10) History of knee surgery RIGHT MENISCUS SURGERY - cassy Z98.890 - Other specified postprocedural states (ICD-10) No history of previous surgery History of dental surgery Z92.89 - Personal history of other medical treatment (ICD-10) History of breast biopsy LEFT Z98.890 - Other specified postprocedural states (ICD-10) Family History Mother Alzheimer's dementia FATHER Cardiac disease Social History Smoking and tobacco status: Former smoker Tobacco: How many years used: 20 Alcohol intake: never Substance use type: does not use Special mar needs: No Agree to transfusion: Yes Adopted: No Caregiver/support person: No Foster care: No Household members: spouse Housing: house Marital status: M Lives independently: Yes Daycare: no daycare Highest education level completed: 7th grade service: No care home: No Current occupational status: retired History of recent travel: No Do you think of yourself as: straight/heterosexual Current gender identity: female Seatbelt use: always Drives intoxicated or rides with intoxicated hog driver: No Water heater temperature set < 120 degrees: Yes Working smoke detector in home: Yes Fire extinguisher in home: Yes Carbon monoxide detector in home: Yes Medications Mecications: Medications at Discharge (Home Meds & RX) calcium 600 mg (as carbonate)-vitamin D3 12.5 mcg (500 unit) capsule (Calcium with Vit D3) 1 cap PO DAILY 06/07/19 cetirizine 10 mg tablet (Zyrtec) 10 mg PO DAILY PRN allergy symptoms 12/23/22 coenzyme [id number] 100 mg-100 unit capsule 1 cap PO QDAY 12/23/22 krill 500 mg-omega-3 150 mg-dha 45 mg-epa 75 [id number] capsule (krill oil) 1 cap PO BID 12/23/22 vitamin E (dl, acetate) 180 mg (400 unit) capsule 180 mg PO QDAY 12/23/22 potassium citrate 99 mg capsule 99 mg PO DAILY 05/10/23 aspirin 81 mg tablet,delayed release 81 mg PO DAILY #30 tabs 08/03/23 albuterol sulfate 90 mcg/actuation aerosol inhaler 2 puff inhalation Q4-6H PRN shortness of breath or wheezing #8.5 grams 11/09/23 tramadol 50 mg tablet 50 mg PO TID PRN pain #270 tabs 06/18/24 furosemide 20 mg tablet 20 mg PO DAILY #90 tabs 07/05/24 simvastatin 40 mg tablet 40 mg PO DAILY #90 tabs 11/06/24 amlodipine 5 mg tablet See Rx Instructions .Route .COMPLEX #90 tabs 11/22/24 omeprazole 40 mg capsule,delayed release See Rx Instructions .Route .COMPLEX #90 caps 11/22/24 coQ10 (ubiquinol) 200 mg capsule (CoQmax Ubiquinol) 200 mg PO DAILY 12/06/24 Allergies Allergies Allergy/AdvReac Type Severity Reaction Status Date / Time BANDAIDS AdvReac Mild rash Uncoded 12/06/24 14:16 TAPE AdvReac Mild rash Uncoded 12/06/24 14:16 Review of Systems Constitutional: Reports No symptoms Head: Reports Normocephalic Eyes: Reports No symptoms Ears: Reports No symptoms Nose: Reports No symptoms Mouth: Reports No symptoms Throat: Reports No symptoms Cardiovascular: Reports Edema Respiratory: Reports No symptoms Gastrointestinal: Reports No symptoms Genitourinary: Reports No Symptoms Musculoskeletal: Reports No symptoms Endocrine: Reports No symptoms Hematology: Reports No symptoms Immunology: Reports No symptoms Physical Examination Appearance: Positive No Apparent Distress and Alert and Oriented x3 Head: Positive Normocephalic Eyes: Positive Not Examined ENT: Positive Not Examined Neck: Positive Supple, Non-Tender, No Masses, No Lynphadenopathy, Trachea Midline and No Carotid Bruits Heart: Positive RRR and No Murmurs Respiratory: Positive Airway patent, Breath Sounds Clear, Bilaterally, Breath Sounds Equal and Respirations Nonlabored; Negative Crackles, Rhonchi, Wheezes or Retractions GI/: Positive Soft, Nontender, Bowel sounds normal, No Distention and No masses Extremities: Positive Edema (+ 1 nonpitting) and Pedal Pulses Palpable Bilaterally Neurological: Positive Cranial nerves intact, Normal Gait, Recent Memory Intact, Remote Memory Intact, Sensation Intact, Motor Intact, Reflexes Intact, Alert and Oriented; Negative Abnormal Reflexes or Focal Deficit Psychiatric: Positive Normal Judgement, Normal Insight, Affect Appropriate and Mood Appropriate Vital Signs (Last 4 Hours) Vital Signs Last 4 Hours: Vital Signs: Last 4 Hours 12/07/24 04:55 12/07/24 05:10 12/07/24 05:10 Temperature 97.5 F L Temperature Source Temporal Artery Scan Pulse Rate 65 Respiratory Rate 18 Blood Pressure 130/68 Blood Pressure Mean 88 Blood Pressure Location Left Arm Blood Pressure Position Supine O2 Sat by Pulse Oximetry 95 Oxygen Delivery Method Room Air Room Air Weight 75.8 kg Telemetry Type Telemetry Monitoring Telemetry Heart Rate EKG AR Interval EKG QRS Interval Telemetry Strip Reading 12/07/24 05:39 12/07/24 07:00 12/07/24 07:00 Temperature Temperature Source Pulse Rate Respiratory Rate Blood Pressure Blood Pressure Mean Blood Pressure Location Blood Pressure Position O2 Sat by Pulse Oximetry Oxygen Delivery Method Room Air Room Air Weight Telemetry Type Remote Telemetry Telemetry Monitoring Continues Telemetry Heart Rate 68 EKG AR Interval 0.22 H EKG QRS Interval 0.12 H Telemetry Strip Reading SR w/ 1st degree AVB and BBB 12/07/24 07:17 Temperature Temperature Source Pulse Rate Respiratory Rate Blood Pressure Blood Pressure Mean Blood Pressure Location Blood Pressure Position O2 Sat by Pulse Oximetry Oxygen Delivery Method Room Air Weight Telemetry Type Telemetry Monitoring Telemetry Heart Rate EKG AR Interval EKG QRS Interval Telemetry Strip Reading Labs This Visit Labs This Visit: Labs This Visit 12/06/24 12/06/24 12/06/24 14:38 14:42 15:56 WBC 5.22 RBC 4.36 Hgb 12.3 Hct 39.2 MCV 89.9 MCH 28.2 MCHC 31.4 L RDW Coeff of Aminah 13.5 Plt Count 176 Immature Gran % (Auto) 0.2 Neut % (Auto) 59.9 Lymph % (Auto) 29.3 [place] % (Auto) 7.7 Eos % (Auto) 2.1 Baso % (Auto) 0.8 Neut # (Auto) 3.1 Lymph # (Auto) 1.5 [place] # (Auto) 0.4 Eos # (Auto) 0.1 Baso # (Auto) 0.0 Immature Gran # (Auto) 0.0 Sodium 140.4 Potassium 3.96 Chloride 101.0 Carbon Dioxide 30.3 H Anion Gap 13.06 BUN 13.7 Creatinine 1.27 Estimated GFR (MDRD) 41.00 BUN/Creatinine Ratio 10.78 Glucose 122.4 H Lactic Acid 1.76 Calcium 9.50 Total Bilirubin 0.50 AST 26.4 ALT 11.5 Alkaline Phosphatase 40.5 L Troponin I < 0.012 NT-Pro-B Natriuret Pep 1020 H Total Protein 6.83 Albumin 4.12 Globulin 2.71 Albumin/Globulin Ratio 1.52 D-Dimer 600.47 H Urine Opiates Screen Negative Ur Oxycodone Screen Negative Urine Methadone Screen Negative Ur Barbiturates Screen Negative U Tricyclic Antidepress Negative Ur Phencyclidine Scrn Negative Ur Amphetamine Screen Negative U Methamphetamines Scrn Negative U Benzodiazepines Scrn Negative Urine Cocaine Screen Negative U Cannabinoids Screen Negative Influ A Molecular Assay Negative by naat Influ B Molecular Assay Negative by naat SARS CoV-2 RNA Rapid CHON Negative 12/07/24 05:20 WBC 5.56 RBC 4.85 Hgb 13.6 Hct 42.8 MCV 88.2 MCH 28.0 MCHC 31.8 RDW Coeff of Aminah 13.5 Plt Count 196 Immature Gran % (Auto) 0.2 Neut % (Auto) 58.3 Lymph % (Auto) 31.8 [place] % (Auto) 7.0 Eos % (Auto) 2.2 Baso % (Auto) 0.5 Neut # (Auto) 3.2 Lymph # (Auto) 1.8 [place] # (Auto) 0.4 Eos # (Auto) 0.1 Baso # (Auto) 0.0 Immature Gran # (Auto) 0.0 Sodium 142.7 Potassium 3.67 Chloride 100.7 Carbon Dioxide 30.9 H Anion Gap 14.77 BUN 13.7 Creatinine 1.29 Estimated GFR (MDRD) 40.00 BUN/Creatinine Ratio 10.62 Glucose 108.6 H Lactic Acid Calcium 9.23 Total Bilirubin 0.59 AST 25.3 ALT 11.9 Alkaline Phosphatase 44.7 L Troponin I NT-Pro-B Natriuret Pep Total Protein 7.12 Albumin 4.24 Globulin 2.88 Albumin/Globulin Ratio 1.47 D-Dimer Urine Opiates Screen Ur Oxycodone Screen Urine Methadone Screen Ur Barbiturates Screen U Tricyclic Antidepress Ur Phencyclidine Scrn Ur Amphetamine Screen U Methamphetamines Scrn U Benzodiazepines Scrn Urine Cocaine Screen U Cannabinoids Screen Influ A Molecular Assay Influ B Molecular Assay SARS CoV-2 RNA Rapid CHON Imaging Imaging: EXAM: CHEST RADIOGRAPH IMPRESSION: Heart size is mildly enlarged. Status post TAVR procedure. No focal infiltrate, effusion, or pneumothorax is identified. Pulmonary vasculature and mediastinal contours are otherwise intact EXAM: CTA CHEST FOR PE FINDINGS: No PE. No CT findings of acute right ventricular strain or pulmonary infarct. Postsurgical changes from TAVR. The heart is mildly enlarged. No pericardial effusion. Limited evaluation for pulmonary nodule secondary to artifact. However, as seen, no findings of a suspicious nodule. Punctate nodule in the right upper lobe (axial series seven, image 48). Calcified granuloma in the left lower lobe. Mosaic attenuation in the lungs, nonspecific. Atelectasis in the lingula and dependent lower lobes. IMPRESSION: No PE. Mosaic attenuation in the lungs, nonspecific. This can be seen with chronic lung disease, air trapping as well as infectious and inflammatory etiologies. Clinical follow-up with follow up imaging as warranted. No findings of focal pneumonia. 0.9 cm left breast nodule, nonspecific. Clinical follow-up with follow up breast imaging as warranted. Review Review Statement: I have independently reviewed and interpreted the labs/EKGs/imaging that were ordered by the ER provider. I have reviewed all outside records that are available currently in our EMR including imaging/notes/labs from previous visits. Plan Reccomendations/Plan: 1. Acute CHF Exacerbation - lasix 20 mg Q8H IVP, I&O, daily weight, last echo 12/2023 EF 66-70% Upon exam, patient reports her swelling is completely gone and she is requesting discharge. Denies shortness of breath, chest pain, or other symptoms. Discussed to follow-up with PCP next week. Continue to elevate extremities and take lasix as previously prescribed. Additional Planning: Case discussed with ED Physician, Dr. Johnson. DVT Prophylaxis: Ambulation Advanced Care Plannin minutes spent discussing advance care planning. Disposition: Admit to: Med/Surg Observation Discussed Plan of Care with Dr. Dominick Nolan. If patient discharged with Left Ventricular Systolic Dysfunction: no Discharged with a beta adriana? [] If no, why not? [] Discharged with an kaity/arb? [] If no, why not? [] Diagnosis: Congestive Heart Failure Exacerbation Diet: Cardiac Activity: as tolerated Medications: No changes Follow-up with PCP next week Review With Patient Reviewed with Patient and Family: Patient and family have been counseled on condition and care plan and have no immediate questions. I have personally discussed and reviewed the patient's visit/current labs/imaging/decision making with Dr. Nay Nolan, my supervising attending. Total number of minutes spent with patient 85 min. More than 50% of the time spent with this patient was devoted to counseling and coordination of care. Time of Admission:12/06/24 19:30 Time of Discharge: 12/07/24 08:45 Discharge Plan Discharge Discharge Orders: Discharge Patient (ONCE); Ordered 12/07/24 Ordered By: AVILA BARRETT Activity Restrictions/Additional Instructions: Diagnosis: Congestive Heart Failure Exacerbation Diet: Cardiac Activity: as tolerated Medications: No changes Follow-up with PCP next week Instructions: Heart Failure (GEN) Care Plan Goals: Problem: Fluid Volume Excess Goal: Maintain adequate fluid volume Instructions: Maintain optimal head of bed placement Monitor respiratory status Monitor for edema Monitor hydration status Patient Disposition: HOME WITH FAMILY CARE Prescriptions: Continued aspirin 81 mg tablet,delayed release (DR/EC) 81 mg PO DAILY Qty: 30 0RF albuterol sulfate 90 mcg/actuation HFA aerosol inhaler 2 puff inhalation Q4-6H PRN (Reason: shortness of breath or wheezing) Qty: 8.5 1RF tramadol 50 mg tablet 50 mg PO TID PRN (Reason: pain) Qty: 270 2RF furosemide 20 mg tablet 20 mg PO DAILY Qty: 90 1RF simvastatin 40 mg tablet 40 mg PO DAILY Qty: 90 1RF amlodipine 5 mg tablet See Rx Instructions .ROUTE .COMPLEX Qty: 90 1RF Dose Instruction: TAKE ONE TABLET DAILY GENERIC FOR NORVASC Rx Instructions: TAKE ONE TABLET DAILY GENERIC FOR NORVASC omeprazole 40 mg capsule,delayed release(DR/EC) See Rx Instructions .ROUTE .COMPLEX Qty: 90 1RF Dose Instruction: TAKE 1 CAPSULE DAILY GENERIC FOR PRILOSEC Rx Instructions: TAKE 1 CAPSULE DAILY GENERIC FOR PRILOSEC calcium carbonate-vitamin D3 [Calcium 600 with Vitamin D3] 600 mg(1,500mg) - 500 unit Capsule 1 cap PO DAILY potassium citrate 99 mg capsule 99 mg PO DAILY CoQmax Ubiquinol 200 mg capsule 200 mg PO DAILY cetirizine [Zyrtec] 10 mg tablet 10 mg PO DAILY PRN (Reason: allergy symptoms) krill oil [id number] mg capsule 1 cap PO BID coenzyme [id number] 100-100 mg-unit capsule 1 cap PO QDAY vitamin E (dl, acetate) 180 mg (400 unit) capsule 180 mg PO QDAY Did you review [place] [employer] for ALL controlled substances?: No Discussed opioids are addictive and Narcan is available by prescription or from pharmacy.: No Condition: Stable Referrals: NOLAN,FRANNIE, MD [Primary Care Provider] - 5-7 Days (PLEASE FOLLOW UP WITH THEIR OFFICE. WE WERE UNABLE TO SCHEDULE AN APPOINTMENT FOR YOU DUE TO THEIR OFFICE BEING CLOSED ON FRIDAYS. )
[2024-12-07] MEDS ORDERED: VITAMIN E PO SCH (09:00)
[2024-12-07] MEDS ORDERED: NON-FORMULARY MEDICATION (Coenzyme Q10-Vitamin E 100-100 mg-unit capsule) PO SCH (09:00)
[2024-12-07] MEDS ORDERED: ZOCOR PO SCH (09:00)
[2024-12-07] MEDS ORDERED: NORVASC PO SCH (09:00)
[2024-12-07] MEDS ORDERED: CALCIUM 500 + VIT D 5 MCG (200 IU) TABLET PO SCH (09:00)
== END 2024-12-07 09:04 | disposition home or self-care (01) ==
LOC: MEDSURG B 14:04 → ED 14:04 → MEDSURG B 20:10
PROVIDERS: ADMIT Hospitalist; ATTEND Nurse Practitioner Family
DX: I50.9 Heart failure, unspecified; Z20.822 Contact with and (suspected) exposure to COVID-19; Z51.81 Encounter for therapeutic drug level monitoring; Z79.899 Other long term (current) drug therapy